=== PATIENT | female | born 1985 | race Caucasian/White ===

== ENCOUNTER 2024-12-08 14:44 | Emergency (ER) | payer OTHER, SELFPAY ==
--- NOTE | ~2024-12-08 | XR_ITS ---
XR knee LT 3V Ordering provider: Ruperto Stewart MD History: . pt fell yesterday . Comparison: None. FINDINGS: BONES: No acute fracture or dislocation. JOINT SPACES: Normal. SOFT TISSUES: Normal. IMPRESSION: No acute osseous abnormality left knee. Reviewed, dictated and finalized at location A.
--- NOTE | ~2024-12-08 | XR_ITS ---
XR femur LT min 2V Ordering provider: Ruperto Stewart MD History: . pt fell yesterday . Comparison: None. FINDINGS: BONES: No acute fracture or dislocation. JOINT SPACES: Normal. SOFT TISSUES: Normal. IMPRESSION: No acute osseous abnormality left femur. Reviewed, dictated and finalized at location A.
[2024-12-08 14:49] VITALS: BP 114/68; PULSE 66; RESP 16; TEMP 36.8; O2SAT 97
--- NOTE | 2024-12-08 15:13 | ED_ITS ---
HPI - General Adult General Chief complaint: Extremity Injury, Lower Stated complaint: Pain left leg-knee & thigh-fell yesterday Time Seen by Provider: 12/08/24 14:50 History of Present Illness HPI narrative: 38-year-old female presents emergency department for evaluation for left knee a nd left femur pain. 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 Patient states since then she has had increased pain the left knee that does radiate up the left leg. Patient denies striking head denies any loss of consciousness. Patient declined any medications for pain control. Related Data Allergies Allergy/AdvReac Type Severity Reaction Status Date / Time No Known Allergies Allergy Verified 12/08/24 14:45 Review of Systems Review of Systems: All systems reviewed & are unremarkable except as noted in HPI and below Exam Narrative: APPEARANCE: Well appearing, no pain, no distress, well-nourished. HEAD: normocephalic, atraumatic. EYES: PERRLA/EOMI, conjunctivae clear. NOSE: Normal no drainage EARS:TMS clear with good light reflex. THROAT: Pharynx clear, no exudate. NECK: Supple. No adenopathy, no masses. RESPIRATORY: Airway patent, respirations nonlabored. Clear to auscultation bilaterally, no rales, rhonchi, wheezing. CARDIOVASCULAR: Regular rate and rhythm without murmurs rubs or gallops. ABDOMINAL: Soft, nontender, nondistended, normal bowel sounds MUSCULOSKELETAL: Ecchymosis to left knee with tenderness to palpation and some ecchymosis the left upper leg NEURO: Alert. Cranial nerves II through XII intact. Good gait. Good coordination SKIN: Warm, dry. Normal Color Course Vital Signs Vital signs: Vital Signs Temperature 98.2 F 12/08/24 14:49 Pulse Rate 66 12/08/24 14:49 Respiratory Rate 16 12/08/24 14:49 Blood Pressure 114/68 12/08/24 14:49 Pulse Oximetry 97 12/08/24 14:49 Oxygen Delivery Room Air 12/08/24 14:49 Temperature 98.2 F 12/08/24 14:49 Pulse Rate 66 12/08/24 14:49 Respiratory Rate 16 12/08/24 14:49 Blood Pressure 114/68 12/08/24 14:49 Pulse Oximetry 97 12/08/24 14:49 Oxygen Delivery Room Air 12/08/24 14:49 Medical Decision Making MDM Narrative Medical decision making narrative: 38-year-old female presents emergency department for evaluation for an injury to her left knee. X-rays femur and knee were negative. Suspect internal derangement of left knee. Patient was provided knee immobilizer and crutches for limited weight-bearing. Patient was encouraged to have close follow-up with primary care physician for potential outpatient MRI if symptoms not improved. All questions concerns were addressed. Patient was well-appearing at time of discharge. Differential Diagnosis Differential Diagnosis: Femur fracture, knee fracture, knee contusion, internal derangement of left knee Vital Signs Vital Signs: Vital Signs Temperature 98.2 F 12/08/24 14:49 Pulse Rate 66 12/08/24 14:49 Respiratory Rate 16 12/08/24 14:49 Blood Pressure 114/68 12/08/24 14:49 Pulse Oximetry 97 12/08/24 14:49 Oxygen Delivery Room Air 12/08/24 14:49 Temperature 98.2 F 12/08/24 14:49 Pulse Rate 66 12/08/24 14:49 Respiratory Rate 16 12/08/24 14:49 Blood Pressure 114/68 12/08/24 14:49 Pulse Oximetry 97 12/08/24 14:49 Oxygen Delivery Room Air 12/08/24 14:49 Imaging Data Radiologist's impression: Impressions Knee X-Ray 12/08/24 15:19 IMPRESSION: No acute osseous abnormality left knee. Femur X-Ray 12/08/24 15:21 IMPRESSION: No acute osseous abnormality left femur. Discharge Plan Discharge Clinical Impression: Acute internal derangement of knee Patient Disposition: Home Condition: Stable Instructions: Antibiotic Form, Crutch Instructions (ED), Knee Pain (ED), Knee Immobilizer (ED) Additional Instructions: Knee immobilizer as directed, crutches for limited weight-bearing. Tylenol and ibuprofen for pain control. Have close follow-up with your primary care physician for additional outpatient testing potentially including an MRI. Patient Language: Yoruba Follow-up/Referrals: PHYSICIAN NOT ON STAFF,NONSTAFF [Non-Staff] -
== END 2024-12-08 15:47 | disposition home or self-care (01) ==
PROVIDERS: Emergency Provider Emergency Medicine
DX: M23.92 Unspecified internal derangement of left knee (principal); S89.92XA Unspecified injury of left lower leg, initial encounter; W18.09XA Striking against other object with subsequent fall, initial encounter
CPT/HCPCS: 73552; 73562; 99283; 99284